=== PATIENT | male | born 1985 | race African-American/Black ===

== ENCOUNTER 2022-01-14 16:00 | Outpatient (RCR) | payer OTHER, SELFPAY ==
--- NOTE | 2022-01-05 14:55 | MHC.PT.EP ---
[facility] [place] Office [place] Office [place] Office [address] Radhames Trevino [address] [phone] F: [phone] F: [phone] F: [phone] F: [phone] Physical Therapy Plan of Care Date of Evaluation: Date of Surgery: n/a Diagnosis: radiculopathy, lumbar region Assessment: Patient is a 36 year old male presenting to PT with complaints of pain in his low back. Pt reports onset of pain began 2 months ago due to jumping when playing basketball. He presents today with impairments in pain, ROM, hip strength, core strength, and posture. 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 Pt expresses senior care goal of reducing pain, and is motivated to work towards this in PT. Clinical presentation today is most consistent with signs and sx associated with back pain with radicular sx and pt will benefit from skilled PT to address the following problems and impairments noted upon evaluation: pain, ROM, hip strength, core strength, and posture. These problems limit the patient with the following functional activities: ADLs, work, ambulation, bending. The prescribed treatment plan of care is medically necessary. Co-morbidities of none were identified and taken into considerations of plan of care. Pt was educated on HEP, role of PT, prognosis, POC. Frequency and Duration: The patient will be seen 2 x week x 4 weeks Short Term Goals: Pt will demonstrate at least 4/5 for hip strength for improved lumbopelvic stability in 2 weeks. Pt will demonstrate ability to perform PPT with good core recruitment in 2 weeks. Pt will demonstrate improved postural awareness by sitting with biomechanically correct posture without cues throughout session to improve overall postural function in 2 weeks. Game Agent Goals: Pt will demonstrate improved [place] score by 10% in 4 weeks for improved functional strength. Pt will demonstrate ability to stand for a full work shift with min to no pain in 4 weeks for improved tolerance to work. Pt will demonstrate ability to complete all ADLs with min to no pain in 4 weeks for return to PLOF. Treatment Plan: Modalities to reduce pain, spasms and effusion. Manual therapy to restore motion and function. Therapeutic exercise to improve strength and flexibility. Neuromuscular re-education for posture and balance. Therapeutic activities to return to functional activities of daily living. Electronically signed by: Radha Ramírez, PT, DPT, ATC Please sign and return to therapist. Thank you for your referral.
--- NOTE | 2022-01-19 13:33 | MHC.PT.DC ---
[facility] [place] Office [place] Office [place] Office [address] Radhames Trevino [address] [phone] F: [phone] F: [phone] F: [phone] F: [phone] Physical Therapy Discharge Report Diagnosis: radiculopathy, lumbar region Date of Surgery: n/a Date of Evaluation: 01/05/22 Date of Discharge: 01/19/22 Treatments to Date: 2 Cancellations to Date: 1 No Shows to Date: 2 Discharge Status: Visit Non-compliance Discharge Summary: Pt has failed to comply with [facility] attendance policy and no showed 2 appointments. Pt to be d/c per attendance policy. Electronically signed by: Radha Ramírez PT, DPT, ATC Please sign and return to therapist. Thank you for your referral.
== END 2022-01-19 13:34 | disposition home or self-care (01) ==
LOC: HO.PTCHIC 16:00
PROVIDERS: PCP Internal Medicine; Visit Provider Internal Medicine
DX: M54.16 Radiculopathy, lumbar region (principal)
CPT/HCPCS: 97110; 97140; 97161

== ENCOUNTER 2022-02-10 13:32 | Outpatient (REF) | payer OTHER, SELFPAY ==
[2022-02-10 14:00] LABS: Binax Internal Control QC Valid; Binax Now Covid-19 Ag Negative (Negative); Binax Performed by: HO.BONILM
== END 2022-02-10 13:33 | disposition home or self-care (01) ==
LOC: HO.HMGCLDS 13:32
PROVIDERS: PCP Internal Medicine; Visit Provider Internal Medicine
DX: Z20.822 Contact with and (suspected) exposure to COVID-19 (principal)
CPT/HCPCS: 87811; C9803